=== PATIENT | male | born 1990 | race Caucasian/White ===

== ENCOUNTER 2024-02-19 09:49 | Emergency (ER) | payer BC, SELFPAY ==
[2024-02-19] VITALS (8 sets, daily range): BP systolic 130–165; BP diastolic 93–107; BMI 18.8
--- NOTE | 2024-02-19 10:16 | ED.GENMED ---
History of Present Illness
General
Chief Complaint: Fall
Source: patient
Exam Limitations: none
Time Seen by Provider: 02/19/24 09:52
Nursing documentation reviewed up to this point in time: agreed with
History of Present Illness
History of Present Illness:
33-year-old male presents with back pain slipped on some ice 2 nights ago right on his mid back no head strike, no neck pain, he has had prior scoliosis surgery x 2 as a child at [facility], he is on no blood thinners no drugs or alcohol, took
some Tylenol yesterday today he woke up could not get out of bed due to pain pains in his mid lateral back underneath the scapula he is able to move all extremities, baseline functions normally, states he does get some back pain occasionally after
golfing or other strenuous activity but not on any chronic medication has had a rib removed on the left due to scoliosis, EMS administered fentanyl patient is feeling a little bit better
Past History
Past History
ED Past Medical History: Hypercholesterolemia and Other (Scoliosis)
ED Past Surgical History: Orthopedic
Social History
Tobacco: Non-smoker
Alcohol: None
Drug: None
Personal: Single
Living: with family
Employment: Employed
Phy Exam
Physical Exam
Physical Exam:
Physical Exam
General: 33 male looks uncomfortable
Neck: No tongue bite no posterior neck pain
Heart: s1/s2 regular rate and rhythm, no murmur. equal radial pulses.
Lungs: no acute respiratory distress.
Back: Painful spasm in the mid upper thoracic spine on the left
Abdomen: Soft nontender
Neuro: alert and oriented. Moves all extremities
Skin: no rash
Psychiatric: well kept. interactive and cooperative
Extremities: no edema.
Course
Orders/Labs/Results
Orders:
Orders
02/19/24 10:09
Thoracic Spine 3 Views CR [CR Thoracic Spine 3 Views] Urgent
Comment:
Reason For Exam: fall prior scoliosis sx
02/19/24 10:34
HYDROmorphone [Dilaudid] 1 mg IV NOW STA
02/19/24 10:35
Ketorolac [Toradol] 30 mg IV NOW STA
Ondansetron Injectable [Zofran] 4 mg IV NOW STA
02/19/24 12:06
CT Chest With Iv Contrast Urgent
Comment:
Reason For Exam: fall
diazePAM [Valium Injection] 10 mg IV NOW STA
02/19/24 12:43
Complete Blood Count/With Diff Urgent
Comprehensive Metabolic Panel Urgent
Abnormal Lab Results
02/19/24
12:43
WBC 12.3 H 10^3/uL
(4.8-10.8)
MCH 31.3 H pg
(27.0-31.0)
Abs Immat Gran (auto) 0.1 H 10^3/uL
(0-0.05)
Absolute Neuts (auto) 10.5 H 10^3/uL
(1.4-6.5)
Absolute Lymphs (auto) 0.9 L 10^3/uL
(1.2-3.4)
Absolute Monos (auto) 0.8 H 10^3/uL
(0.1-0.6)
Neutrophils % 85.9 H %
(42.2-75.2)
Lymphocytes % 6.9 L %
(20.5-51.1)
Glucose 139 H mg/dl
(70-99)
Total Bilirubin 1.4 H mg/dl
(0.2-1.3)
Total Protein 9.0 H g/dl
(6.3-8.2)
Albumin 5.6 H g/dl
(3.5-5.0)
02/19/24 12:43
02/19/24 12:43
Vital Signs
Initial and Last Documented VS:
Initial Vital Signs
Temp Pulse Resp BP Pulse Ox
98.7 F 79 20 165/107 97
02/19/24 10:02 02/19/24 10:02 02/19/24 10:02 02/19/24 10:02 02/19/24 10:02
Last Documented Vital Signs
Temp Pulse Resp BP Pulse Ox
98.7 F 79 20 152/102 94
02/19/24 10:02 02/19/24 10:02 02/19/24 10:02 02/19/24 12:00 02/19/24 12:30
MDM/Problems Addressed
Differential Diagnosis Includes:
Contusion strain hardware issue compression fracture
MDM/Problems Addressed:
Back pain after fall
Chronic conditions affecting care:
Scoliosis prior surgery
Acute Exacerbation and/or Progression of Chronic Illness:
Scoliosis prior surgery
*Radiology
Radiology exam reviewed: radiology read reviewed
*Pulse Oximetry
Patient hypoxic: no
*Hedge Fund Manager Interpretation
Rate: normal
Interpretation: normal
Heart Rate: 78
Rhythm: sinus
*Critical Care Note
Total Time (30-74mins, 75-104mins- exclusive of procedures): Not Applicable
Update Note
Update Note:
Update x-ray report noted, patient and family updated patient looks improved he is now able to sit up still with some spasm we will try some Valium family request the CAT scan due to his history not unreasonable
[address] report noted patient appears comfortable reviewed with patient and family
ED Attending Note
-
Portions of this chart may have been created with voice recognition software.� Occasional wrong word or��sound alike� substitutions may have occurred due to the inherent limitations of voice recognition software.
Discharge Plan
Departure
Patient Disposition: Home (Routine Discharge)
Date of Disposition: 02/19/24
Time of Disposition: 15:11
Patient with high blood pressure during this ER visit?: No
Condition: Good
Discharge Problem:
Back contusion
Instructions: Contusion (DC), Preventing falls in adults
Prescriptions:
New
docusate sodium [Colace] 100 mg capsule
100 mg PO BID Qty: 20 0RF
Rx Instructions:
take while using oxycodone
oxycodone 5 mg capsule
5 mg PO Q6H PRN (Reason: Pain) Qty: 20 0RF
ibuprofen 600 mg tablet
600 mg PO Q8H PRN (Reason: Pain) Qty: 30 0RF
Referrals:
Prashanth Walker DO [Family Provider] - Next open appointment
Activity Restrictions/Additional Instructions:
Ice for the next day or so then use warm compresses or heating pad, stay active, medication as prescribed, use Colace to keep your bowels moving
Interventions
Interventions:
*Risk Screen - Suicide Last Done: 02/19/24 10:02
*Neglect/Abuse Screening Last Done: 02/19/24 10:02
Discharge Date and Time
Print Language: INDONESIAN
[2024-02-19] MEDS: DILAUDID 1 MG IV (10:45)
[2024-02-19] MEDS: TORADOL 30 MG IV (10:47)
[2024-02-19] MEDS: ZOFRAN 4 MG IV (10:48)
[2024-02-19] MEDS: VALIUM INJECTION 10 MG IV (12:33)
[2024-02-19 13:05] LABS: % Basophils 0.2 % (0-2); % Eosinophils 0.1 % (0-6); % Immature Granulocytes 0.5 % (0-0.5); % Lymphocytes 6.9 % (20.5-51.1); % Monocytes 6.4 % (1.7-9.3); % Neutrophils 85.9 % (42.2-75.2); Absolute Immature Granulocytes 0.1 10^3/uL (0-0.05); Absolute Lymphocytes 0.9 10^3/uL (1.2-3.4); Absolute Monocytes 0.8 10^3/uL (0.1-0.6); Absolute Neutrophils 10.5 10^3/uL (1.4-6.5); Hematocrit 50.8 % (39.0-52.0); Hemoglobin 17.6 g/dL (13.0-18.0); Mean Corp Hgb Conc. 34.6 g/dL (33.0-37.0); Mean Corpuscular Hgb 31.3 pg (27.0-31.0); Mean Corpuscular Volume 90.2 fL (80.0-94.0); Mean Platelet Volume 9.1 fL (7.4-10.4); Nucleated Red Blood Cells % 0 % (-); Platelet Count 264 10^3/uL (130-400); Red Blood Cell Count 5.63 10^6/uL (4.70-6.10); Red Cell Dist. Width 11.9 % (11.5-14.5); White Blood Cell Count 12.3 10^3/uL (4.8-10.8)
[2024-02-19 13:17] LABS: ALT (SGPT) 31 U/L (0-50); AST (SGOT) 30 U/L (17-59); Albumin 5.6 g/dl (3.5-5.0); Alkaline Phosphatase 87 U/L (38-126); Blood Urea Nitrogen 15 mg/dl (9-20); Calcium 10.1 mg/dl (8.4-10.2); Carbon Dioxide 24 mmol/L (22-30); Chloride 98 mmol/L (98-107); Estimated Creatinine Clearance 88 ml/min; Glucose 139 mg/dl (70-99); Potassium 4.5 mmol/L (3.5-5.1); Sodium 140 mmol/L (135-145); Total Bilirubin 1.4 mg/dl (0.2-1.3); eGFR > 60.00
== END 2024-02-19 16:15 | disposition home or self-care (01) ==
LOC: EMR 09:49
PROVIDERS: EMERGENCY PHYSICIAN Emergency Medicine; FAMILY PHYSICIAN Family Medicine
DX: S20.229A Contusion of unspecified back wall of thorax, initial encounter (principal); W00.0XXA Fall on same level due to ice and snow, initial encounter; E78.00 Pure hypercholesterolemia, unspecified; M41.9 Scoliosis, unspecified
CPT/HCPCS: 99284; 96374; 96375; 71260; 72072; 80053; 85025; Q9967